=== PATIENT | female | born 1990 | race American Indian/Alaskan Native ===

== ENCOUNTER 2017-07-26 12:02 | Emergency (ER) | payer MEDICAID ==
[2017-07-26 13:56] LABS: Bilirubin,Urine NEG (Negative); Blood,Urine LG (Negative); Ketones,Urine 20 mg/dL (Negative); Leukocyte Esterase,Urine LG (Negative); Mucus,Urine 2+ /HPF; Nitrite,Urine NEG (Negative)
[2017-07-26 13:58] LABS: RBC,Urine > 182.0 /HPF (0.0-6.0); WBC,Urine > 182.0 /HPF (0.0-6.0)
[2017-07-26 14:04] LABS: Anion Gap 15 mmol/L; BUN/Creatinine Ratio 15; Blood Urea Nitrogen 9 mg/dL (7-17); Carbon Dioxide 24 mmol/L (22-30); Chloride 102.3 mmol/L (98-107); Glucose 89 mg/dL (65-100); Potassium 3.6 mmol/L (3.6-5.0); Sodium 138 mmol/L (137-145)
[2017-07-26 14:13] LABS: Basophils % (Auto) 0.8 % (0.0-1.8); Eosinophils % (Auto) 2.1 % (0.0-4.3); Hematocrit 39.9 % (30.3-42.9); Hemoglobin 13.6 gm/dl (10.1-14.3); Mean Corpuscular HGB Conc 34 % (30-34); Mean Corpuscular Hemoglobin 31 pg (28-32); Mean Corpuscular Volume 91 fl (79-97); Platelet Count 253 K/mm3 (140-440); Red Blood Count 4.41 M/mm3 (3.65-5.03); Red Cell Distribution Width 13.6 % (13.2-15.2); White Blood Count 9.5 K/mm3 (4.5-11.0)
--- NOTE | 2017-07-26 15:26 | Emergency Department Report ---
ED Female HPI - General Chief complaint: Vaginal Bleeding Stated complaint: , VAGINAL BLEEDING Time Seen by Provider: 07/26/17 13:08 Source: patient Mode of arrival: Ambulatory Limitations: No Limitations - History of Present Illness Initial comments: This is a 27-year-old female nontoxic, well nourished in appearance, no acute signs of distress presents to the ED complaining of chronic intermittent UTI. Patient stated 3 days ago she developed dysuria and hematuria. They stated this is occurring for the past 2 years and usually is treated with antibiotics the patient does not remember what antibiotics it is. Patient denies any abdominal pain, nausea, vomiting, back pain, fever, chills, numbness, tingling, vaginal discharge, vaginal bleeding. Patient states she is currently 8 weeks and follows up with a [facility]IC[facility] with normal . Patient denies any abdominal pain or vaginal bleeding. Denies any allergies or past mental history. MD Complaint: dysuria -: Gradual, days(s) (3) Radiation: non-radiating Severity: mild Severity scale (0 -10): 5 Quality: burning Consistency: constant Improves with: none Worsens with: urination Are you Now?: Yes Last Menstrual Period: 06/06/17 EDC: 03/13/18 Associated Symptoms: dysuria, other (hematuria.). denies: vaginal discharge, vaginal bleeding, abdominal pain, nausea/vomiting, fever/chills, headaches, loss of appetite, hematuria, rash, seizure, shortness of breath, syncope, weakness - Related Data Previous Rx's Medication Instructions Recorded Last Taken Type Benzonatate [Tessalon Perles] 100 mg PO Q8HR #10 capsule 12/07/14 Unknown Rx Guaifenesin/Codeine Phosphate 5 ml PO BID #10 dose 12/07/14 Unknown Rx [Guaifen-Codeine 100-10 mg/5 ml] Ibuprofen [Motrin 600 MG tab] 600 mg PO Q8H PRN #20 tablet 12/07/14 Unknown Rx Nitrofurantoin [place]/M-Cryst 100 mg PO Q12HR #20 capsule 07/26/17 Unknown Rx [Macrobid CAP] Allergies Allergy/AdvReac Type Severity Reaction Status Date / Time No Known Allergies Allergy Unverified 12/07/14 10:08 ED Review of Systems ROS: Stated complaint: , VAGINAL BLEEDING Other details as noted in HPI Constitutional: denies: chills, fever Eyes: denies: eye pain, eye discharge, vision change ENT: denies: ear pain, throat pain Respiratory: denies: cough, shortness of breath, wheezing Cardiovascular: denies: chest pain, palpitations Endocrine: no symptoms reported Gastrointestinal: denies: abdominal pain, nausea, diarrhea Genitourinary: dysuria, hematuria. denies: urgency, discharge Musculoskeletal: denies: back pain, joint swelling, arthralgia Skin: denies: rash, lesions Neurological: denies: headache, weakness, paresthesias Psychiatric: denies: anxiety, depression Hematological/Lymphatic: denies: easy bleeding, easy bruising ED Past Medical Hx - Past Medical History Previous Medical History?: No - Surgical History Past Surgical History?: No - Social History Smoking Status: Current Every Day Smoker Substance Use Type: None, Alcohol - Medications Home Medications: Home Medications Medication Instructions Recorded Confirmed Last Taken Type Benzonatate [Tessalon Perles] 100 mg PO Q8HR #10 capsule 12/07/14 Unknown Rx Guaifenesin/Codeine Phosphate 5 ml PO BID #10 dose 12/07/14 Unknown Rx [Guaifen-Codeine 100-10 mg/5 ml] Ibuprofen [Motrin 600 MG tab] 600 mg PO Q8H PRN #20 tablet 12/07/14 Unknown Rx Nitrofurantoin [place]/M-Cryst 100 mg PO Q12HR #20 capsule 07/26/17 Unknown Rx [Macrobid CAP] ED Physical Exam - General Limitations: No Limitations General appearance: alert, in no apparent distress - Head Head exam: Present: atraumatic, normocephalic - Eye Eye exam: Present: normal appearance, PERRL, EOMI. Absent: scleral icterus, conjunctival injection, nystagmus, periorbital swelling, periorbital tenderness Pupils: Present: normal accommodation - ENT ENT exam: Present: normal exam, normal orophraynx, mucous membranes moist, TM's normal bilaterally, normal external ear exam - Neck Neck exam: Present: normal inspection, full ROM. Absent: tenderness, meningismus, lymphadenopathy, thyromegaly - Respiratory Respiratory exam: Present: normal lung sounds bilaterally. Absent: respiratory distress, wheezes, rales, rhonchi, stridor, chest wall tenderness, accessory muscle use, decreased breath sounds, prolonged expiratory - Cardiovascular Cardiovascular Exam: Present: regular rate, normal rhythm, normal heart sounds. Absent: bradycardia, tachycardia, irregular rhythm, systolic murmur, diastolic murmur, rubs, gallop - GI/Abdominal GI/Abdominal exam: Present: soft, normal bowel sounds. Absent: distended, tenderness, guarding, rebound, rigid, diminished bowel sounds - Rectal Rectal exam: Present: deferred - Extremities Exam Extremities exam: Present: normal inspection, full ROM, normal capillary refill. Absent: tenderness, pedal edema, joint swelling, calf tenderness - Back Exam Back exam: Present: normal inspection, full ROM. Absent: tenderness, CVA tenderness (R), CVA tenderness (L), muscle spasm, paraspinal tenderness, vertebral tenderness, rash noted - Neurological Exam Neurological exam: Present: alert, oriented X3, CN II-XII intact, normal gait, reflexes normal - Psychiatric Psychiatric exam: Present: normal affect, normal mood - Skin Skin exam: Present: warm, dry, intact, normal color. Absent: rash ED Course Vital Signs 07/26/17 12:06 Temperature 98.4 F Pulse Rate 60 Blood Pressure 132/81 O2 Sat by Pulse 99 Oximetry - Reevaluation(s) Reevaluation #1: 07/26/17 15:26 Patient is speaking in full sentences with no signs of distress noted. - Consultations Consultation #1: 07/26/17 15:26 Dr. Bernal has been consulted about patient history, physical exam, and labs and agrees to d/c with Macrobid and f/u. ED Medical Decision Making - Lab Data Result diagrams: 07/26/17 13:36 07/26/17 13:36 - Medical Decision Making 27-year-old female that presents with UTI. UA indicates elevated WBCs and RBCs. Patient be treated with Macrobid. Transvaginal and abdominal ultrasound has been obtained with negative findings of any abnormalities. Patient notified of report and UA and agrees to plan of care. Patient was instructed to follow-up with a primary care doctor/[facility]IC[facility] in 3-5 days or if symptoms worsen and continue return to emergency room as soon as possible possible. Patient is hemodynamically stable with stable vital signs. Patient states he is feeling better. At time time of discharge, the patient does not seem toxic or ill in appearance. No acute signs of distress noted. Patient agrees to discharge treatment plan of care. No further questions noted by the patient. Critical care attestation.: If time is entered above; I have spent that time in minutes in the direct care of this critically ill patient, excluding procedure time. ED Disposition Clinical Impression: UTI (urinary tract infection) Qualifiers: Urinary tract infection type: site unspecified Hematuria presence: with hematuria Qualified Code(s): N39.0 - Urinary tract infection, site not specified ; R31.9 - Hematuria, unspecified; R31.9 - Hematuria, unspecified Disposition: TO HOME OR SELFCARE Is pt being admited?: No Does the pt Need Aspirin: No Condition: Stable Instructions: Urinary Tract Infection in Women (ED), Nitrofurantoin Combination (By mouth) Additional Instructions: follow-up with a primary care doctor/[facility] LUBRICATOR in 3-5 days or if symptoms worsen and continue return to emergency room as soon as possible Prescriptions: Nitrofurantoin [place]/M-Cryst [Macrobid CAP] 100 mg PO Q12HR #20 capsule Referrals: PRIMARY CAREMD [Primary Care Provider] - 3-5 Days LIDNA GAVIN MD [Staff Physician] - 3-5 Days JESUSITA HART MD [Staff Physician] - 3-5 Days [facility] [Outside] - 3-5 Days [facility] [Outside] - 3-5 Days Forms: Work/School Release Form(ED)
--- NOTE | 2017-07-26 16:19 | Ultrasound Report ---
OB ultrasound: patient with abdominal pain. Endovaginal and transabdominal imaging demonstrates an anteverted uterus measuring 5.1 x 5.6 x 9.5 cm. The myometrium is homogeneous. There is an intrauterine gestational sac containing a yolk sac and a gestation with crown-rump length of 7.8 mm. This is equivalent to gestational age of 6 weeks 5 days. Doppler imaging indicates a heart rate of 122 beats per minute. The left ovary measures 2 cm and the right measures 2.5 cm. Both are echogenically unremarkable. No other adnexal masses and no free fluid. Impressions: Viable veloz intrauterine with no apparent complication.
[2017-07-26 17:00] VITALS: BP 120/69
== END 2017-07-26 16:59 | disposition home or self-care (01) ==
LOC: ED 12:02
DX: O23.31 Infections of other parts of urinary tract in pregnancy, first trimester (principal); N39.0 Urinary tract infection, site not specified; R31.9 Hematuria, unspecified; F17.200 Nicotine dependence, unspecified, uncomplicated; Z3A.08 8 weeks gestation of pregnancy
CPT/HCPCS: 36415; 76801; 76817; 80048; 81001; 84702; 85025; 86850; 86900; 86901

== ENCOUNTER 2020-10-27 10:01 | Emergency (ER) | payer SELFPAY ==
[2020-10-27 11:42] LABS: HCG Qualitative,Urine Negative (Negative)
[2020-10-27 11:45] LABS: Bacteria,Urine 1+ /HPF (Negative); Bilirubin,Urine NEG (Negative); Blood,Urine LG (Negative); Color,Urine Amber (Yellow)
[2020-10-27 11:46] LABS: RBC,Urine > 182.0 /HPF (0.0-6.0)
[2020-10-27] MEDS ORDERED: ONDANSETRON 4 MG/2 ML INJ IV ONE (12:46)
[2020-10-27] MEDS ORDERED: KETOROLAC 30 MG/1 ML INJ IV ONE (12:46)
[2020-10-27] MEDS ORDERED: SODIUM CHLORIDE 0.9% 1000 ML 1,000 ML IV ONE (12:46)
[2020-10-27] MEDS ORDERED: cefTRIAXone/NS 1 GM/50 ML 1 GM/50 ML BAG IV ONE (12:48)
--- NOTE | 2020-10-27 12:49 | Emergency Department Report ---
ED Female HPI - General Chief complaint: Urogenital-Female Stated complaint: UTI Time Seen by Provider: 10/27/20 11:52 Source: patient Mode of arrival: Ambulatory Limitations: No Limitations - History of Present Illness Initial comments: 30-year-old female with a past medical history of recurrent UTIs presents to the ER today complaining of a 1 month history of hematuria and dysuria. Patient states that she has burning towards the end of her urination and also bright red blood was in her urination. This has been constant for the past month. She reports associated lower abdominal pain and lower back pain and this morning she had a mild case of nausea but no vomiting. Patient states that she has not been seen by any primary care doctors or urgent care of the ER doctors in the past month for her symptoms. She states that she has been having similar symptoms off and on for the past 5 years, and typically she will be diagnosed with a UTI and given antibiotics, but her symptoms have been recurrent. She states that she does not have insurance and therefore does not have a primary care doctor and has never seen a urologist. Typically she will go to an urgent care or the ER for treatment. Her last menstrual cycle was 10/16/2019. MD Complaint: dysuria, pelvic pain, other (hematuria) -: month(s) (1) - Related Data Previous Rx's Medication Instructions Recorded Last Taken Type Benzonatate [Tessalon Perles] 100 mg PO Q8HR #10 capsule 12/07/14 Unknown Rx Guaifenesin/Codeine Phosphate 5 ml PO BID #10 dose 12/07/14 Unknown Rx [Guaifen-Codeine 100-10 mg/5 ml] Ibuprofen [Motrin 600 MG tab] 600 mg PO Q8H PRN #20 tablet 12/07/14 Unknown Rx Nitrofurantoin [place]/M-Cryst 100 mg PO Q12HR #20 capsule 07/26/17 Unknown Rx [Macrobid CAP] Ketorolac [Toradol] 10 mg PO Q6H PRN #20 tablet 10/27/20 Unknown Rx Ondansetron [Zofran Odt] 4 mg PO Q8HR PRN #12 tab.rapdis 10/27/20 Unknown Rx cephALEXin [Keflex] 500 mg PO Q6HR #40 capsule 10/27/20 Unknown Rx Allergies Allergy/AdvReac Type Severity Reaction Status Date / Time No Known Allergies Allergy Unverified 12/07/14 10:08 ED Review of Systems ROS: Stated complaint: UTI Other details as noted in HPI Constitutional: denies: chills, fever Respiratory: denies: cough, shortness of breath, wheezing Cardiovascular: denies: chest pain, palpitations Genitourinary: urgency, dysuria, frequency, hematuria. denies: discharge, abnormal menses, dyspareunia Musculoskeletal: back pain Skin: denies: rash, lesions Neurological: denies: headache, weakness, paresthesias Psychiatric: denies: anxiety, depression Hematological/Lymphatic: denies: easy bleeding, easy bruising ED Past Medical Hx - Past Medical History Previous Medical History?: Yes Additional medical history: UTI - Surgical History Past Surgical History?: No - Social History Smoking Status: Light Tobacco Smoker Substance Use Type: Alcohol, Marijuana - Medications Home Medications: Home Medications Medication Instructions Recorded Confirmed Last Taken Type Benzonatate [Tessalon Perles] 100 mg PO Q8HR #10 capsule 12/07/14 Unknown Rx Guaifenesin/Codeine Phosphate 5 ml PO BID #10 dose 12/07/14 Unknown Rx [Guaifen-Codeine 100-10 mg/5 ml] Ibuprofen [Motrin 600 MG tab] 600 mg PO Q8H PRN #20 tablet 12/07/14 Unknown Rx Nitrofurantoin [place]/M-Cryst 100 mg PO Q12HR #20 capsule 07/26/17 Unknown Rx [Macrobid CAP] Ketorolac [Toradol] 10 mg PO Q6H PRN #20 tablet 10/27/20 Unknown Rx Ondansetron [Zofran Odt] 4 mg PO Q8HR PRN #12 tab.rapdis 10/27/20 Unknown Rx cephALEXin [Keflex] 500 mg PO Q6HR #40 capsule 10/27/20 Unknown Rx ED Physical Exam - General Limitations: No Limitations General appearance: alert, in no apparent distress - Head Head exam: Present: atraumatic, normocephalic, normal inspection - Eye Eye exam: Present: normal appearance, PERRL, EOMI Pupils: Present: normal accommodation - Neck Neck exam: Present: full ROM - Respiratory Respiratory exam: Present: normal lung sounds bilaterally - Cardiovascular Cardiovascular Exam: Present: regular rate, normal rhythm, normal heart sounds - GI/Abdominal GI/Abdominal exam: Present: soft, tenderness (Mild suprapubic tenderness without guarding or rebound.). Absent: distended, guarding, rebound - Neurological Exam Neurological exam: Present: alert, oriented X3, CN II-XII intact, normal gait - Psychiatric Psychiatric exam: Present: normal affect, normal mood - Skin Skin exam: Present: intact ED Course Vital Signs 10/27/20 10:27 Temperature 98.2 F Pulse Rate 67 Respiratory 18 Rate Blood Pressure 132/84 [Left] O2 Sat by Pulse 99 Oximetry ED Medical Decision Making - Lab Data Result diagrams: 10/27/20 12:50 10/27/20 12:50 - Radiology Data Radiology results: report reviewed Findings [facility] [address] [place] [address] Cat Scan Report Signed Patient: ANAY MANN MR#: [id number] : 1990 Acct:[id number] Age/Sex: 30 / F ADM Date: 10/27/20 Loc: ED Attending Dr: Ordering Physician: MAYCO DE LA CRUZ Date of Service: 10/27/20 Procedure(s): CT abdomen pelvis w con Accession Number(s): [id number] cc: MAYCO DE LA CRUZ CT ABDOMEN AND PELVIS WITH IV CONTRAST INDICATION: Hematuria x 1 mth/dysuria. COMPARISON: None available. TECHNIQUE: Axial CT images were obtained through the abdomen and pelvis after 100 mL IV contrast. All CT scans at this location are performed using CT dose reduction for ALARA by means of automated exposure control. FINDINGS -- ABDOMEN: Lung Bases: No acute abnormality. Liver: Normal. Gallbladder: Normal. Bile Ducts: Normal. Pancreas: Normal. Spleen: Normal. Adrenals: Normal. Right Kidney and Proximal Ureter: Normal. Left Kidney and Proximal Ureter: Normal. Stomach and Bowel: Normal. Lymph Nodes: No significant adenopathy. Aorta: No significant abnormality. IVC: Normal. Additional Findings: There are several borderline enlarged nodes identified along the right lower quadrant mesentery.. FINDINGS -- PELVIS: Urinary Bladder and Distal Ureters: Please see below comments. Reproductive Organs: There is a intrauterine device that is malpositioned and appears outside of the uterus. This device appears to be at least partially along or within the right upper aspect of the urinary bladder lumen. Appendix: Normal. Bowel: No acute abnormality. Free Fluid: None. Lymph Nodes: No significant adenopathy. Additional Findings: None. Skeletal System: No acute abnormality. IMPRESSION: Malpositioned intrauterine device which appears entirely extrauterine and is within very close proximity to the right upper aspect of the urinary bladder and the right lower pelvic mesentery just lateral to the uterine fundus. I cannot exclude the possibility that a portion of the intrauterine device is located within the urinary bladder given the overall appearance. The urinary bladder is collapsed. No drainable intra-abdominal fluid collections identified at this time. Signer Name: Tito Brantley MD Signed: 10/27/2020 2:48 PM Workstation Name: [id number] Transcribed By: BC Dictated By: Tito Brantley MD Electronically Authenticated By: Tito Brantley MD Signed Date/Time: 10/27/20 1448 DD/ 1434 TD/TT: - Medical Decision Making 1530: Labs reviewed and CBC shows a normal white count as well as normal hemoglobin and platelet count. Chemistries are unremarkable. Urinalysis is concerning for UTI, urine culture is pending. CT abdomen pelvis reviewed and there appears to be an IUD does outside of the uterus, and close to the bladder and there is a question of whether it could be possibly within the bladder as well. Otherwise CT scan showed no other acute abnormality. Patient currently resting comfortably. She is currently on her phone and does not appear to be in any acute distress. She is well-appearing and nontoxic. Appears hydrated. She had mild tenderness to the suprapubic abdomen without rebound or guarding or any abdominal rigidity. She reports improvement of her pain after meds. Discussed the lab results and CT results with the patient. She does admit that she had an IUD placed about 9 years ago by [facility]. She thinks it is the Mirena. Discussed the case with Dr. Singleton who reviewed CT and lab results. He recommends consulting patient's [facility] [facility] group who placed the IUD. Dr. Dr Alfred Arguello is transportation clerk today for the group 1535: Call placed to Dr. Arguello, reviewed history, physical as well as lab and CT findings with him. He agrees patient can be discharge and follow-up outpatient to have her IUD removed but due to the fact that we do not have urology transportation clerk here, he recommend that patient follow-up with a clinic or hospital like either [facility] or [facility] who has both urology and [facility] [facility] on-call services, as she likely will need outpatient surgery to have this removed but will need both urology and [employer] to get it done. He is concerned that if this becomes an emergency, there is no urology on-call. Discussed Dr Hardin recommendations with Dr Singleton Discussed treatment plan, and recommendations per consult with [employer] if patient. She expressed understanding of instructions and agreed with plan. Critical care attestation.: If time is entered above; I have spent that time in minutes in the direct care of this critically ill patient, excluding procedure time. ED Disposition Clinical Impression: UTI (urinary tract infection), IUD mechanical complication Disposition: TO HOME OR SELFCARE Is pt being admited?: No Does the pt Need Aspirin: No Condition: Stable Instructions: Urinary Tract Infection, Adult Additional Instructions: I recommend that you take the antibiotic and the pain medicine prescribed here to you as directed. Follow up with [facility] or [facility] listed on your discharge instructions to follow-up with an [employer]. Return to the ER if your symptoms changes or worsens in any way. Prescriptions: cephALEXin [Keflex] 500 mg PO Q6HR #40 capsule Ketorolac [Toradol] 10 mg PO Q6H PRN #20 tablet PRN Reason: Pain Ondansetron [Zofran Odt] 4 mg PO Q8HR PRN #12 tab.rapdis PRN Reason: Vomiting Referrals: LAUREL BOLANOS MD [Staff Physician] - 3-5 Days [facility] [Other] - 3-5 Days [facility] [place] [Other] - 3-5 Days Time of Disposition: 16:21
[2020-10-27 13:38] LABS: Basophils % (Auto) 0.5 % (0.0-1.8); Eosinophils # (Auto) 0.2 K/mm3 (0.0-0.4); Eosinophils % (Auto) 2.5 % (0.0-4.3); Hematocrit 39.1 % (30.3-42.9); Lymphocytes # (Auto) 2.5 K/mm3 (1.2-5.4); Lymphocytes % (Auto) 25.4 % (13.4-35.0); Mean Corpuscular HGB Conc 33 % (30-34); Mean Corpuscular Volume 92 fl (79-97); Monocytes # (Auto) 0.7 K/mm3 (0.0-0.8); Monocytes % (Auto) 7.4 % (0.0-7.3); Platelet Count 359 K/mm3 (140-440); Red Blood Count 4.25 M/mm3 (3.65-5.03); Red Cell Distribution Width 14.2 % (13.2-15.2)
[2020-10-27 14:11] LABS: Alanine Aminotransferase 16 units/L (7-56); Albumin 4.1 g/dL (3.9-5); BUN/Creatinine Ratio 11; Blood Urea Nitrogen 9 mg/dL (7-17); Calcium 9.6 mg/dL (8.4-10.2); Hemolysis Index 2
--- NOTE | 2020-10-27 14:52 | Cat Scan Report ---
CT ABDOMEN AND PELVIS WITH IV CONTRAST INDICATION: Hematuria x 1 mth/dysuria. COMPARISON: None available. TECHNIQUE: Axial CT images were obtained through the abdomen and pelvis after 100 mL IV contrast. All CT scans a t this location are performed using CT dose reduction for ALARA by means of automated exposure contro l. FINDINGS -- ABDOMEN: Lung Bases: No acute abnormality. Liver: Normal. Gallbladder: Normal. Bile Ducts: Normal. Pancreas: Normal. Spleen: Normal. Adrenals: Normal. Right Kidney and Proximal Ureter: Normal. Left Kidney and Proximal Ureter: Normal. Stomach and Bowel: Normal. Lymph Nodes: No significant adenopathy. Aorta: No significant abnormality. IVC: Normal. Additional Findings: There are several borderline enlarged nodes identified along the right lower ron drant mesentery.. FINDINGS -- PELVIS: Urinary Bladder and Distal Ureters: Please see below comments. Reproductive Organs: There is a intrauterine device that is malpositioned and appears outside of the uterus. This device appears to be at least partially along or within the right upper aspect of the ur inary bladder lumen. Appendix: Normal. Bowel: No acute abnormality. Free Fluid: None. Lymph Nodes: No significant adenopathy. Additional Findings: None. Skeletal System: No acute abnormality. IMPRESSION: Malpositioned intrauterine device which appears entirely extrauterine and is within very close proxim ity to the right upper aspect of the urinary bladder and the right lower pelvic mesentery just latera l to the uterine fundus. I cannot exclude the possibility that a portion of the intrauterine device i s located within the urinary bladder given the overall appearance. The urinary bladder is collapsed. No drainable intra-abdominal fluid collections identified at this time. Signer Name: Tito Brantley MD Signed: 10/27/2020 2:48 PM Workstation Name: [id number]
[2020-10-27 18:01] VITALS: BP 128/72
== END 2020-10-27 18:08 | disposition home or self-care (01) ==
LOC: ED 10:01
DX: N39.0 Urinary tract infection, site not specified (principal); T83.89XA Other specified complication of genitourinary prosthetic devices, implants and grafts, initial encounter; F17.200 Nicotine dependence, unspecified, uncomplicated; F12.10 Cannabis abuse, uncomplicated; Z79.899 Other long term (current) drug therapy
CPT/HCPCS: 36415; 74177; 80053; 81001; 81025; 85025; 87086; 96365; 96375; 99284; J0696; J1885; J2405; J7030; Q9967

== ENCOUNTER 2021-11-15 08:41 | Inpatient (IN) | payer MEDICAID ==
[2021-11-15] MEDS ORDERED: miSOPROStol 25 MCG TAB PO NR (10:31)
--- NOTE | 2021-11-15 10:37 | History and Physical Report ---
History of Present Illness Date of examination: 11/15/21 Date of admission: 11/15/21 08:41 Chief complaint: Presents for a scheduled induction of labor due to GDM A2 (Metformin); and Maternal obesity. History of present illness: Early entry to care, course complicated by IUD in left Fallopian tube, SMA carrier, GDM A2, Recurrent UTIs, Anemia, and Vitamin D Deficiency; Co-managed with [facility]. Past History Past Medical History: no pertinent history Past Surgical History: [employer]/uterine surgery (EAB) [employer] History: chlamydia, trichomonas Family/Genetic History: heart disease (Father, PGM), hypertension (parents, MGM, aunt) - Obstetrical History Expected Date of Delivery: 11/22/21 Actual Gestation: 39 Week(s) 0 Day(s) : 7 Para: 3 Hx # Term Pregnancies: 3 Induced : 3 Number of Living Children: 3 #1 Gender: Male year: 2,[birth year] Birthweight: 2.665 kg Method of Delivery: Vaginal Gestational age at delivery: 41 #2 Infant Gender: Female year: 2,011 Birthweight: 3.09 kg Method of Delivery: Vaginal Gestational age at delivery: 41 #3 Infant Gender: Male year: 2,013 Birthweight: 3.203 kg Method of Delivery: Vaginal Gestational age at delivery: 41 Medications and Allergies Allergies Allergy/AdvReac Type Severity Reaction Status Date / Time No Known Allergies Allergy Verified 11/15/21 08:57 Home Medications Medication Instructions Recorded Confirmed Last Taken Type Benzonatate [Tessalon Perles] 100 mg PO Q8HR #10 capsule 12/07/14 Unknown Rx Guaifenesin/Codeine Phosphate 5 ml PO BID #10 dose 12/07/14 Unknown Rx [Guaifen-Codeine 100-10 mg/5 ml] Ibuprofen [Motrin 600 MG tab] 600 mg PO Q8H PRN #20 tablet 12/07/14 Unknown Rx Nitrofurantoin Pike/M-Cryst 100 mg PO Q12HR #20 capsule 07/26/17 Unknown Rx [Macrobid CAP] Ketorolac [Toradol] 10 mg PO Q6H PRN #20 tablet 10/27/20 Unknown Rx Ondansetron [Zofran Odt] 4 mg PO Q8HR PRN #12 tab.rapdis 10/27/20 Unknown Rx cephALEXin [Keflex] 500 mg PO Q6HR #40 capsule 10/27/20 Unknown Rx Active Meds: Active Medications Butorphanol Tartrate (Butorphanol 2 Mg/1 Ml Inj) 2 mg IV Q2H PRN PRN Reason: Pain , Severe (7-10) Carboprost Tromethamine (Carboprost Tromethamine 250 Mcg/1 Ml Inj) 250 mcg IM ONCE PRN PRN Reason: Uterine Bleeding Ephedrine Sulfate (Ephedrine Sulfate 50 Mg/1 Ml Inj) 10 mg IV Q2M PRN PRN Reason: Hypotension Oxytocin/Sodium Chloride (Pitocin/Ns 30 Unit/500ml) 30 units in 500 mls @ 2 mls/hr IV TITR RICA; Protocol Lactated Ringer's (Lactated Ringers) 1,000 mls @ 125 mls/hr IV DIRECT RICA Oxytocin/Sodium Chloride (Pitocin/Ns 30 Unit/500ml) 30 units in 500 mls @ 40 mls/hr IV TITR RICA; Protocol Lidocaine (Lidocaine (2%) 20 Mg/1 Ml Vial 20 Ml Mdv) 20 ml INFILTRATI ONCE ONE Stop: 11/15/21 10:24 Loperamide HCl (Loperamide 2 Mg Cap) 2 mg PO ONCE PRN PRN Reason: give with Hemabate Methylergonovine Maleate (Methylergonovine Maleate 0.2 Mg/Ml Vial) 0.2 mg IM ONCE PRN PRN Reason: Uterine Bleeding Mineral Oil (Mineral Oil 30 Ml Oral Liqd) 30 ml PO QHS PRN PRN Reason: Constipation Misoprostol (Misoprostol 200 Mcg Tab) 800 mcg MT ONCE PRN PRN Reason: Uterine Bleeding Misoprostol (Misoprostol 25 Mcg Tab) 25 mcg PO ONCE ONE Stop: 11/15/21 10:32 Naloxone HCl (Naloxone 0.4 Mg/1 Ml Inj) 0.1 mg IV Q2MIN PRN PRN Reason: Res Rate </= 8 or 02 SAT < 92% Ondansetron HCl (Ondansetron 4 Mg/2 Ml Inj) 4 mg IV Q8H PRN PRN Reason: Nausea And Vomiting Oxytocin (Oxytocin 10 Unit/1 Ml Inj) 10 unit IM ONCE PRN PRN Reason: Uterine Bleeding Terbutaline Sulfate (Terbutaline 1 Mg/1 Ml Inj) 0.25 mg SUB-Q ONCE PRN PRN Reason: Hyperstimulation/Hypertonicity Review of Systems All systems: negative - Vital Signs Vital signs: Vital Signs Temp Pulse Resp BP Pulse Ox 98.0 F 82 14 126/71 97 11/15/21 09:11 11/15/21 09:11 11/15/21 09:11 11/15/21 09:11 11/15/21 09:11 Temp Pulse Resp BP Pulse Ox 98.0 F 78 14 126/71 100 11/15/21 09:11 11/15/21 10:27 11/15/21 09:11 11/15/21 09:11 11/15/21 10:27 - Physical Exam Breasts: Positive: normal Cardiovascular: Regular rate Lungs: Positive: Clear to auscultation, Normal air movement Abdomen: Positive: normal appearance, soft, normal bowel sounds Genitourinary (Female): Positive: normal external genitalia, normal perenium Vagina: Positive: normal moisture Uterus: Positive: enlarged Anus/Rectum: Positive: normal perianal skin Extremities: Positive: normal - Obstetrical FHR: category 1 Uterine Contraction Monitor Mode: External Cervical Dilatation: 1 Cervical Effacement Percentage: 30 station: -4 Uterine Contraction Pattern: Irregular Uterine Tone Measurement Phase: Resting Uterine Contraction Intensity: Mild Results All other labs normal. Assessment and Plan A: IUP @ 39 Weeks Category I Tracing GDM A2 Maternal Obesity GBS Negative P: Admit to L&D per Routine Orders Accuchecks q 4 hours Cook's Cervical Ripening Balloon placed Cytotec 25mcg PO x 1 dose
[2021-11-15] MEDS ORDERED: ONDANSETRON 4 MG/2 ML INJ IV PRN ×2 (11:00→20:29)
[2021-11-15] MEDS ORDERED: OXYTOCIN 10 UNIT/1 ML INJ IM PRN (11:00)
[2021-11-15] MEDS ORDERED: LOPERAMIDE 2 MG CAP PO PRN (11:00)
[2021-11-15] MEDS ORDERED: TERBUTALINE 1 MG/1 ML INJ SUB-Q PRN (11:00)
[2021-11-15] MEDS ORDERED: METHYLERGONOVINE MALEATE 0.2 MG/ML VIAL IM PRN (11:00)
[2021-11-15] MEDS ORDERED: BUTORPHANOL 2 MG/1 ML INJ IV PRN (11:00)
[2021-11-15] MEDS ORDERED: miSOPROStol 200 MCG TAB PR PRN (11:00)
[2021-11-15] MEDS ORDERED: ePHEDrine SULFATE 50 MG/1 ML INJ IV PRN (11:00)
[2021-11-15] MEDS ORDERED: OXYTOCIN DRIP 30 UNITS/500 ML BAG IV SCH ×2 (11:00)
[2021-11-15] MEDS ORDERED: NALOXONE 0.4 MG/1 ML INJ IV PRN (11:00)
[2021-11-15] MEDS ORDERED: LIDOCAINE (2%) 20 MG/1 ML VIAL 20 ML MDV INFILTRATI NR (11:00)
[2021-11-15] MEDS ORDERED: CARBOPROST TROMETHAMINE 250 MCG/1 ML INJ IM PRN (11:00)
[2021-11-15] MEDS: LACTATED RINGERS 1,000 ML IV SCH ×3 (11:40→20:00)
[2021-11-15] MEDS ORDERED: IBUPROFEN 600 MG TAB PO SCH (13:00)
[2021-11-15] MEDS ORDERED: WITCH HAZEL/ GLYCERIN PAD TP PRN (13:00)
[2021-11-15] MEDS ORDERED: LANOLIN/ZINC/DIMETHICONE (LANSINOH) 7 GM TP PRN (13:00)
[2021-11-15] MEDS ORDERED: HYDROcodone/ACETAMINOPHEN 5-325 MG TAB PO PRN (13:00)
[2021-11-15 13:22] LABS: Hemoglobin 9.6 gm/dl (10.1-14.3); Mean Corpuscular HGB Conc 33 % (30-34); Mean Corpuscular Volume 85 fl (79-97); Platelet Count 405 K/mm3 (140-440); Red Blood Count 3.42 M/mm3 (3.65-5.03); Red Cell Distribution Width 14.5 % (13.2-15.2)
[2021-11-15] MEDS ORDERED: diphenhydrAMINE 25 MG CAP PO PRN (14:00)
--- NOTE | 2021-11-15 14:42 | Progress Note ---
Assessment and Plan A: IUP @ 39 Weeks Category I Tracing with low baseline GDM A2 Maternal Obesity GBS Negative P: AROM Internals x 2 Continue Pitocin Augmentation Continue Accuchecks as ordered Subjective - Subjective Date of service: 11/15/21 Interval history: Early entry to care, course complicated by IUD in left Fallopian tube, SMA carrier, GDM A2, Recurrent UTIs, Anemia, and Vitamin D Deficiency; Co-managed with [facility]. Patient reports: movement normal, contractions Objective - Vital Signs Vital Signs: Vital Signs - 12hr 11/15/21 11/15/21 11/15/21 09:11 09:12 09:17 Temperature 98.0 F Pulse Rate 82 82 84 Respiratory 14 Rate Blood Pressure 126/71 Blood Pressure 126/71 [Right] O2 Sat by Pulse 97 98 99 Oximetry O2 Sat by Pulse Oximetry [ Bilateral] 11/15/21 11/15/21 11/15/21 09:22 09:26 09:27 Temperature Pulse Rate 79 81 Respiratory Rate Blood Pressure Blood Pressure [Right] O2 Sat by Pulse 99 98 Oximetry O2 Sat by Pulse 99 Oximetry [ Bilateral] 11/15/21 11/15/21 11/15/21 09:32 09:37 09:42 Temperature Pulse Rate 79 76 80 Respiratory Rate Blood Pressure Blood Pressure [Right] O2 Sat by Pulse 98 98 99 Oximetry O2 Sat by Pulse Oximetry [ Bilateral] 11/15/21 11/15/21 11/15/21 09:47 09:52 09:57 Temperature Pulse Rate 79 81 83 Respiratory Rate Blood Pressure Blood Pressure [Right] O2 Sat by Pulse 99 99 99 Oximetry O2 Sat by Pulse Oximetry [ Bilateral] 11/15/21 11/15/21 11/15/21 10:02 10:07 10:12 Temperature Pulse Rate 101 H 80 77 Respiratory Rate Blood Pressure Blood Pressure [Right] O2 Sat by Pulse 100 99 99 Oximetry O2 Sat by Pulse Oximetry [ Bilateral] 11/15/21 11/15/21 11/15/21 10:17 10:22 10:27 Temperature Pulse Rate 78 76 78 Respiratory Rate Blood Pressure Blood Pressure [Right] O2 Sat by Pulse 99 100 100 Oximetry O2 Sat by Pulse Oximetry [ Bilateral] 11/15/21 11/15/21 11/15/21 10:32 10:37 10:42 Temperature Pulse Rate 88 78 81 Respiratory Rate Blood Pressure Blood Pressure [Right] O2 Sat by Pulse 99 100 100 Oximetry O2 Sat by Pulse Oximetry [ Bilateral] 11/15/21 11/15/21 11/15/21 10:47 10:52 10:57 Temperature Pulse Rate 77 76 78 Respiratory Rate Blood Pressure Blood Pressure [Right] O2 Sat by Pulse 100 100 100 Oximetry O2 Sat by Pulse Oximetry [ Bilateral] 11/15/21 11/15/21 11/15/21 11:18 11:23 11:28 Temperature Pulse Rate 69 67 78 Respiratory Rate Blood Pressure Blood Pressure [Right] O2 Sat by Pulse 83 L 100 100 Oximetry O2 Sat by Pulse Oximetry [ Bilateral] 11/15/21 11/15/21 11/15/21 11:33 11:38 11:39 Temperature Pulse Rate 72 92 H Respiratory Rate Blood Pressure Blood Pressure [Right] O2 Sat by Pulse 99 99 89 Oximetry O2 Sat by Pulse Oximetry [ Bilateral] 11/15/21 11/15/21 11/15/21 11:40 11:50 11:57 Temperature Pulse Rate 81 Respiratory Rate Blood Pressure 129/78 Blood Pressure [Right] O2 Sat by Pulse 94 84 Oximetry O2 Sat by Pulse Oximetry [ Bilateral] 11/15/21 11/15/21 11/15/21 12:06 12:07 12:11 Temperature Pulse Rate 74 59 L 99 H Respiratory Rate Blood Pressure Blood Pressure [Right] O2 Sat by Pulse 0 L 3 L 0 L Oximetry O2 Sat by Pulse Oximetry [ Bilateral] 11/15/21 11/15/21 11/15/21 12:16 12:21 12:26 Temperature Pulse Rate 150 H 79 26 L Respiratory Rate Blood Pressure Blood Pressure [Right] O2 Sat by Pulse 0 L 0 L 0 L Oximetry O2 Sat by Pulse Oximetry [ Bilateral] 11/15/21 11/15/21 11/15/21 12:32 12:37 12:42 Temperature Pulse Rate 66 65 Respiratory Rate Blood Pressure Blood Pressure [Right] O2 Sat by Pulse 0 L 0 L 84 Oximetry O2 Sat by Pulse Oximetry [ Bilateral] 11/15/21 11/15/21 11/15/21 12:43 12:47 12:50 Temperature 97.8 F Pulse Rate 94 H 136 H Respiratory Rate Blood Pressure 123/72 Blood Pressure [Right] O2 Sat by Pulse 40 L 94 Oximetry O2 Sat by Pulse Oximetry [ Bilateral] 11/15/21 11/15/21 13:42 14:21 Temperature Pulse Rate 73 79 Respiratory Rate Blood Pressure 117/69 Blood Pressure [Right] O2 Sat by Pulse 100 Oximetry O2 Sat by Pulse Oximetry [ Bilateral] - Exam Breasts: normal Cardiovascular: Regular rate Lungs: Normal air movement Abdomen: Present: normal appearance, soft Uterus: Present: normal, firm, fundal height above umbilicus FHR: category 1 (Low Baseline) Uterine Contraction Monitor Mode: Internal Cervical Dilatation: 6 (AROM @ 1433; large amount of clear fluid) Cervical Effacement Percentage: 70 station: -2 Uterine Contraction Pattern: Regular Uterine Tone Measurement Phase: Resting Uterine Contraction Intensity: Mild Extremities: normal - Labs Labs: Abnormal Labs 11/15/21 10:20 WBC 11.8 H RBC 3.42 L Hgb 9.6 L Hct 29.0 L Laboratory Results - last 24 hr 11/15/21 11/15/21 11/15/21 10:20 10:20 10:34 WBC 11.8 H RBC 3.42 L Hgb 9.6 L Hct 29.0 L MCV 85 MCH 28 MCHC 33 RDW 14.5 Plt Count 405 POC Glucose 72 SARS-CoV-2 (PCR) Blood Type O POSITIVE Antibody Screen Negative 11/15/21 11:23 WBC RBC Hgb Hct MCV MCH MCHC RDW Plt Count POC Glucose SARS-CoV-2 (PCR) Negative Blood Type Antibody Screen
--- NOTE | 2021-11-15 18:57 | Progress Note ---
Assessment and Plan A: IUP @ 39 Weeks Category I Tracing GDM A2 Maternal Obesity GBS Negative P: Continue Pitocin Augmentation Continue Accuchecks as ordered Prepare for Epidural Anesthesia Subjective - Subjective Date of service: 11/15/21 Interval history: Early entry to care, course complicated by IUD in left Fallopian tube, SMA carrier, GDM A2, Recurrent UTIs, Anemia, and Vitamin D Deficiency; Co-managed with [facility]. Patient reports: movement normal, contractions, other (Requesting epidural anesthesia) Objective - Vital Signs Vital Signs: Vital Signs - 12hr 11/15/21 11/15/21 11/15/21 09:11 09:12 09:17 Temperature 98.0 F Pulse Rate 82 82 84 Respiratory 14 Rate Blood Pressure 126/71 Blood Pressure 126/71 [Right] O2 Sat by Pulse 97 98 99 Oximetry O2 Sat by Pulse Oximetry [ Bilateral] 11/15/21 11/15/21 11/15/21 09:22 09:26 09:27 Temperature Pulse Rate 79 81 Respiratory Rate Blood Pressure Blood Pressure [Right] O2 Sat by Pulse 99 98 Oximetry O2 Sat by Pulse 99 Oximetry [ Bilateral] 11/15/21 11/15/21 11/15/21 09:32 09:37 09:42 Temperature Pulse Rate 79 76 80 Respiratory Rate Blood Pressure Blood Pressure [Right] O2 Sat by Pulse 98 98 99 Oximetry O2 Sat by Pulse Oximetry [ Bilateral] 11/15/21 11/15/21 11/15/21 09:47 09:52 09:57 Temperature Pulse Rate 79 81 83 Respiratory Rate Blood Pressure Blood Pressure [Right] O2 Sat by Pulse 99 99 99 Oximetry O2 Sat by Pulse Oximetry [ Bilateral] 11/15/21 11/15/21 11/15/21 10:02 10:07 10:12 Temperature Pulse Rate 101 H 80 77 Respiratory Rate Blood Pressure Blood Pressure [Right] O2 Sat by Pulse 100 99 99 Oximetry O2 Sat by Pulse Oximetry [ Bilateral] 11/15/21 11/15/21 11/15/21 10:17 10:22 10:27 Temperature Pulse Rate 78 76 78 Respiratory Rate Blood Pressure Blood Pressure [Right] O2 Sat by Pulse 99 100 100 Oximetry O2 Sat by Pulse Oximetry [ Bilateral] 11/15/21 11/15/21 11/15/21 10:32 10:37 10:42 Temperature Pulse Rate 88 78 81 Respiratory Rate Blood Pressure Blood Pressure [Right] O2 Sat by Pulse 99 100 100 Oximetry O2 Sat by Pulse Oximetry [ Bilateral] 11/15/21 11/15/21 11/15/21 10:47 10:52 10:57 Temperature Pulse Rate 77 76 78 Respiratory Rate Blood Pressure Blood Pressure [Right] O2 Sat by Pulse 100 100 100 Oximetry O2 Sat by Pulse Oximetry [ Bilateral] 11/15/21 11/15/21 11/15/21 11:18 11:23 11:28 Temperature Pulse Rate 69 67 78 Respiratory Rate Blood Pressure Blood Pressure [Right] O2 Sat by Pulse 83 L 100 100 Oximetry O2 Sat by Pulse Oximetry [ Bilateral] 11/15/21 11/15/21 11/15/21 11:33 11:38 11:39 Temperature Pulse Rate 72 92 H Respiratory Rate Blood Pressure Blood Pressure [Right] O2 Sat by Pulse 99 99 89 Oximetry O2 Sat by Pulse Oximetry [ Bilateral] 11/15/21 11/15/21 11/15/21 11:40 11:50 11:57 Temperature Pulse Rate 81 Respiratory Rate Blood Pressure 129/78 Blood Pressure [Right] O2 Sat by Pulse 94 84 Oximetry O2 Sat by Pulse Oximetry [ Bilateral] 11/15/21 11/15/21 11/15/21 12:06 12:07 12:11 Temperature Pulse Rate 74 59 L 99 H Respiratory Rate Blood Pressure Blood Pressure [Right] O2 Sat by Pulse 0 L 3 L 0 L Oximetry O2 Sat by Pulse Oximetry [ Bilateral] 11/15/21 11/15/21 11/15/21 12:16 12:21 12:26 Temperature Pulse Rate 150 H 79 26 L Respiratory Rate Blood Pressure Blood Pressure [Right] O2 Sat by Pulse 0 L 0 L 0 L Oximetry O2 Sat by Pulse Oximetry [ Bilateral] 11/15/21 11/15/21 11/15/21 12:32 12:37 12:42 Temperature Pulse Rate 66 65 Respiratory Rate Blood Pressure Blood Pressure [Right] O2 Sat by Pulse 0 L 0 L 84 Oximetry O2 Sat by Pulse Oximetry [ Bilateral] 11/15/21 11/15/21 11/15/21 12:43 12:47 12:50 Temperature 97.8 F Pulse Rate 94 H 136 H Respiratory Rate Blood Pressure 123/72 Blood Pressure [Right] O2 Sat by Pulse 40 L 94 Oximetry O2 Sat by Pulse Oximetry [ Bilateral] 11/15/21 11/15/21 11/15/21 13:42 14:21 14:38 Temperature Pulse Rate 73 79 77 Respiratory Rate Blood Pressure 117/69 Blood Pressure [Right] O2 Sat by Pulse 100 100 Oximetry O2 Sat by Pulse Oximetry [ Bilateral] 11/15/21 11/15/21 11/15/21 14:43 14:48 14:53 Temperature Pulse Rate 72 75 78 Respiratory Rate Blood Pressure Blood Pressure [Right] O2 Sat by Pulse 100 100 100 Oximetry O2 Sat by Pulse Oximetry [ Bilateral] 11/15/21 11/15/21 11/15/21 14:58 15:03 15:08 Temperature Pulse Rate 83 74 68 Respiratory Rate Blood Pressure Blood Pressure [Right] O2 Sat by Pulse 100 100 100 Oximetry O2 Sat by Pulse Oximetry [ Bilateral] 11/15/21 11/15/21 11/15/21 15:13 15:18 15:23 Temperature Pulse Rate 73 82 77 Respiratory Rate Blood Pressure Blood Pressure [Right] O2 Sat by Pulse 100 100 100 Oximetry O2 Sat by Pulse Oximetry [ Bilateral] 11/15/21 11/15/21 11/15/21 15:28 15:33 15:38 Temperature Pulse Rate 73 70 77 Respiratory Rate Blood Pressure Blood Pressure [Right] O2 Sat by Pulse 99 100 100 Oximetry O2 Sat by Pulse Oximetry [ Bilateral] 11/15/21 11/15/21 11/15/21 15:43 15:48 15:53 Temperature Pulse Rate 78 84 76 Respiratory Rate Blood Pressure Blood Pressure [Right] O2 Sat by Pulse 100 100 100 Oximetry O2 Sat by Pulse Oximetry [ Bilateral] 11/15/21 11/15/21 11/15/21 15:58 16:03 16:04 Temperature Pulse Rate 81 71 70 Respiratory Rate Blood Pressure 114/57 Blood Pressure [Right] O2 Sat by Pulse 100 100 Oximetry O2 Sat by Pulse Oximetry [ Bilateral] 11/15/21 11/15/21 11/15/21 16:08 16:13 16:18 Temperature Pulse Rate 66 71 72 Respiratory Rate Blood Pressure Blood Pressure [Right] O2 Sat by Pulse 100 100 100 Oximetry O2 Sat by Pulse Oximetry [ Bilateral] 11/15/21 11/15/21 11/15/21 16:23 16:28 16:33 Temperature Pulse Rate 86 71 73 Respiratory Rate Blood Pressure Blood Pressure [Right] O2 Sat by Pulse 100 100 100 Oximetry O2 Sat by Pulse Oximetry [ Bilateral] 11/15/21 11/15/21 11/15/21 16:38 16:43 16:48 Temperature Pulse Rate 82 68 75 Respiratory Rate Blood Pressure Blood Pressure [Right] O2 Sat by Pulse 100 100 100 Oximetry O2 Sat by Pulse Oximetry [ Bilateral] 11/15/21 11/15/21 11/15/21 16:53 16:58 17:03 Temperature Pulse Rate 68 71 66 Respiratory Rate Blood Pressure 130/72 Blood Pressure [Right] O2 Sat by Pulse 100 100 100 Oximetry O2 Sat by Pulse Oximetry [ Bilateral] 11/15/21 11/15/21 11/15/21 17:08 17:13 17:18 Temperature Pulse Rate 75 70 79 Respiratory Rate Blood Pressure Blood Pressure [Right] O2 Sat by Pulse 100 100 100 Oximetry O2 Sat by Pulse Oximetry [ Bilateral] 11/15/21 11/15/21 11/15/21 17:23 17:24 17:28 Temperature Pulse Rate 98 H 89 72 Respiratory Rate Blood Pressure Blood Pressure [Right] O2 Sat by Pulse 98 94 100 Oximetry O2 Sat by Pulse Oximetry [ Bilateral] 11/15/21 11/15/21 11/15/21 17:33 17:38 17:43 Temperature Pulse Rate 66 76 70 Respiratory Rate Blood Pressure Blood Pressure [Right] O2 Sat by Pulse 100 100 100 Oximetry O2 Sat by Pulse Oximetry [ Bilateral] 11/15/21 11/15/21 11/15/21 17:48 17:53 17:58 Temperature Pulse Rate 70 68 83 Respiratory Rate Blood Pressure Blood Pressure [Right] O2 Sat by Pulse 100 100 100 Oximetry O2 Sat by Pulse Oximetry [ Bilateral] 11/15/21 11/15/21 11/15/21 18:14 18:19 18:24 Temperature Pulse Rate 94 H 89 86 Respiratory Rate Blood Pressure Blood Pressure [Right] O2 Sat by Pulse 97 100 100 Oximetry O2 Sat by Pulse Oximetry [ Bilateral] 11/15/21 11/15/21 11/15/21 18:29 18:34 18:39 Temperature Pulse Rate 97 H 90 84 Respiratory Rate Blood Pressure Blood Pressure [Right] O2 Sat by Pulse 100 97 100 Oximetry O2 Sat by Pulse Oximetry [ Bilateral] 11/15/21 11/15/21 18:44 18:49 Temperature Pulse Rate 73 73 Respiratory Rate Blood Pressure Blood Pressure [Right] O2 Sat by Pulse 100 100 Oximetry O2 Sat by Pulse Oximetry [ Bilateral] - Exam Breasts: normal Cardiovascular: Regular rate Lungs: Normal air movement Abdomen: Present: normal appearance, soft Uterus: Present: normal, firm, fundal height above umbilicus FHR: category 1 Uterine Contraction Monitor Mode: Internal Cervical Dilatation: 6 (leaking a moderate amount of clear fluid) Cervical Effacement Percentage: 70 station: -2 Uterine Contraction Pattern: Irregular Uterine Tone Measurement Phase: Resting Uterine Contraction Intensity: Moderate Extremities: normal - Labs Labs: Abnormal Labs 11/15/21 10:20 WBC 11.8 H RBC 3.42 L Hgb 9.6 L Hct 29.0 L Laboratory Results - last 24 hr 11/15/21 11/15/21 11/15/21 10:20 10:20 10:34 WBC 11.8 H RBC 3.42 L Hgb 9.6 L Hct 29.0 L MCV 85 MCH 28 MCHC 33 RDW 14.5 Plt Count 405 POC Glucose 72 SARS-CoV-2 (PCR) Blood Type O POSITIVE Antibody Screen Negative 11/15/21 11/15/21 11/15/21 11:23 14:42 18:20 WBC RBC Hgb Hct MCV MCH MCHC RDW Plt Count POC Glucose 74 87 SARS-CoV-2 (PCR) Negative Blood Type Antibody Screen
[2021-11-15] MEDS ORDERED: NalbUPHINE 10 MG/1 ML INJ IV PRN (20:29)
[2021-11-15] MEDS ORDERED: LACTATED RINGERS 250 ML IV SOLN IV ONE (20:29)
[2021-11-15] MEDS ORDERED: NALOXONE 2 MG/2 ML INJ IV PRN (20:29)
[2021-11-15] MEDS ORDERED: diphenhydrAMINE 50 MG/ML VIAL IV PRN (20:29)
[2021-11-15] MEDS ORDERED: fentaNYL-BUPIV 2 MCG/ML-0.125% 200 MCG/100 ML BAG EPIDURAL SCH (21:00)
--- NOTE | 2021-11-15 21:24 | Anesthesia Consultation ---
Anesthesia Consult and Med Hx Date of service: 11/15/21 - Airway Anesthetic Teeth Evaluation: Good ROM Head & Neck: Adequate Mental/Hyoid Distance: Adequate Mallampati Class: Class III Intubation Access Assessment: Possibly Difficult - Pulmonary Exam CTA: Yes - Cardiac Exam Cardiac Exam: RRR - Pre-Operative Health Status ASA Pre-Surgery Classification: ASA2 Proposed Anesthetic Plan: Epidural - Pulmonary Hx Smoking: No Hx Asthma: No COPD: No Hx Pneumonia: No Hx Sleep Apnea: No - Cardiovascular System Hx Hypertension: No Hx Heart Attack/AMI: No Hx Angina: No - Central Nervous System Hx Seizures: No Hx Psychiatric Problems: No - Gastrointestinal Hx Gastroesophageal Reflux Disease: No - Endocrine Hx Renal Disease: No Hx End Stage Renal Disease: No Hx Liver Disease: No Hx Insulin Dependent Diabetes: No Hx Non-Insulin Dependent Diabetes: No Hx Hypothyroidism: No Hx Hyperthyroidism: No - Hematic Hx Anemia: No Hx Sickle Cell Disease: No - Other Systems Hx Alcohol Use: No Hx Obesity: Yes
--- NOTE | 2021-11-15 21:25 | Progress Note ---
Labor Epidural - Labor Epidural Start Time: 21:08 Stop Time: 21:20 Performed by:: REID DOWELL Procedure: Patient is requesting epidural for labor and pain. H&P, labs were reviewed. Patient IDed, H&P reviewed, all questions and concerns were answered, and consent was signed. Timeout was performed at bedside. Patient in sitting position. Sterile prep and drape was performed. 3ml of 1% lidocaine skin wheal at L[3]- L [4]. 17-gauge Tuohy epidural needle was advanced to loss of resistance with air technique 7cm. Negative CSF negative blood. Epidural catheter advanced to [12] centimeters. [negative] Aspiration [negative] test dose. Sterile dressing applied. Patient tolerated procedure.
[2021-11-15] MEDS ORDERED: MINERAL OIL 30 ML ORAL LIQD PO PRN (22:00)
[2021-11-15] MEDS ORDERED: SODIUM CHLORIDE 0.9% 1000 ML 1,000 ML ONE (22:37)
[2021-11-15] MEDS ORDERED: SODIUM CHLORIDE 0.9% 1000 ML 1,000 ML VG SCH ×2 (22:45)
[2021-11-15] MEDS: ePHEDrine SULFATE 50 MG/1 ML INJ IV PRN ×2 (22:52→23:35)
[2021-11-16 01:54] LABS: Hematocrit 28.5 % (30.3-42.9); Hemoglobin 9.2 gm/dl (10.1-14.3)
--- NOTE | 2021-11-16 02:52 | Ultrasound Report ---
ULTRASOUND OBSTETRIC LIMITED INDICATION / CLINICAL INFORMATION: EFW, HECTOR. Clinical Gestational Age (GA) in weeks, days: 39 weeks 0 days TECHNIQUE: Transabdominal. COMPARISON: None available. FINDINGS: NUMBER: Single PRESENTATION: cephalic AMNIOTIC FLUID VOLUME: normal AMNIOTIC FLUID INDEX (HECTOR) in cm (if measured): 9.0 MEASUREMENTS: - Biparietal Diameter = 8.8 cm = 35 weeks, 3 days - Head Circumference = 30.6 cm = 34 weeks, 1 days - Abdominal Circumference = 27.0 cm = 31 weeks, 1 days - Femur Length = 7.5 cm = 34 weeks, 2 days - Estimated Weight (in grams, if calculated): 2323 g - Heart Rate (beats per minute): 123 ADDITIONAL FINDINGS: None. PERCENTILE ESTIMATED WEIGHT (if calculated): AVERAGE ULTRASOUND AGE (AUA) in weeks, days = 34 weeks 5 days IMPRESSION: 1. Single intrauterine with AUA of 34 weeks, 5 days 2. No significant sonographic abnormality. Signer Name: Maria Luz Holloway MD Signed: 11/16/2021 2:47 AM Workstation Name: [id number]
--- NOTE | 2021-11-16 03:42 | Event Note ---
Date: 11/16/21 CC: IOL secondary to GDMA2 HPI: 31 y/o at 39 weeks presents undergoing IOL secondary to GDMA2. No VB. Good FM. S/P cervical ripening and AROM. Now on Pitocin. IUPC and FSE in place. Accuchecks are q 1 hour and between 79-99. [address]. O: EFM= category 2 TOCO= q 6 min SVE= 8 cm LABS: HgBA1c= 5.5 RAD: OB US Limited= EFW 2323 g (<1st %-ile) IMP: - 39 weeks - GDMA2 - IUGR - Obesity - SMA Carrier - IOL PLAN: - Continue IOL. - Amnioinfusion going though IUPC.
[2021-11-16 03:46] LABS: Basophils % (Auto) 0.2 % (0.0-1.8); Eosinophils % (Auto) 0.3 % (0.0-4.3); Hematocrit 30.5 % (30.3-42.9); Hemoglobin 9.9 gm/dl (10.1-14.3); Lymphocytes # (Auto) 1.4 K/mm3 (1.2-5.4); Mean Corpuscular HGB Conc 33 % (30-34); Mean Corpuscular Volume 85 fl (79-97); Monocytes # (Auto) 1.7 K/mm3 (0.0-0.8); Monocytes % (Auto) 10.6 % (0.0-7.3); Platelet Count 386 K/mm3 (140-440); Red Blood Count 3.58 M/mm3 (3.65-5.03); Red Cell Distribution Width 14.4 % (13.2-15.2)
[2021-11-16] MEDS ORDERED: miSOPROStol 25 MCG TAB PO SCH (04:00)
[2021-11-16] MEDS: LACTATED RINGERS 1,000 ML IV SCH (04:31)
[2021-11-16] MEDS ORDERED: AMPICILLIN/SULBACTA 3GM/100ML 3 GM/100 ML BAG IV SCH (05:00)
--- NOTE | 2021-11-16 08:16 | Progress Note ---
Subjective - Subjective Date of service: 11/16/21 Interval history: 9cm/80/-3 FHT Cat 2, +ve early variables with moderate variability [place]: irregular Plan for CFM oxytocin @1mu/min expect KIM Lester MD Patient reports: movement normal, contractions, other (Requesting epidural anesthesia) Objective - Vital Signs Vital Signs: Vital Signs - 12hr 11/15/21 11/15/21 11/15/21 20:23 20:28 20:33 Temperature Pulse Rate 84 73 69 Blood Pressure O2 Sat by Pulse 100 100 100 Oximetry 11/15/21 11/15/21 11/15/21 20:38 20:43 20:48 Temperature Pulse Rate 71 73 71 Blood Pressure O2 Sat by Pulse 100 100 100 Oximetry 11/15/21 11/15/21 11/15/21 20:53 20:58 21:03 Temperature Pulse Rate 72 93 H 79 Blood Pressure 145/76 O2 Sat by Pulse 99 99 99 Oximetry 11/15/21 11/15/21 11/15/21 21:08 21:13 21:18 Temperature Pulse Rate 81 85 83 Blood Pressure 128/63 O2 Sat by Pulse 99 99 99 Oximetry 11/15/21 11/15/21 11/15/21 21:20 21:23 21:24 Temperature Pulse Rate 88 78 85 Blood Pressure 135/65 124/58 O2 Sat by Pulse 0 L Oximetry 11/15/21 11/15/21 11/15/21 21:26 21:28 21:30 Temperature Pulse Rate 85 96 H 86 Blood Pressure 129/58 123/65 O2 Sat by Pulse 99 Oximetry 11/15/21 11/15/21 11/15/21 21:32 21:33 21:35 Temperature Pulse Rate 73 83 71 Blood Pressure 111/57 116/58 O2 Sat by Pulse 99 Oximetry 11/15/21 11/15/21 11/15/21 21:38 21:39 21:41 Temperature 100.3 F H Pulse Rate 68 66 Blood Pressure 114/59 117/56 O2 Sat by Pulse 100 Oximetry 11/15/21 11/15/21 11/15/21 21:43 21:44 21:47 Temperature Pulse Rate 65 64 67 Blood Pressure 117/56 113/55 O2 Sat by Pulse 99 Oximetry 01/31/22 01/31/22 01/31/22 21:48 21:50 21:53 Temperature Pulse Rate 69 67 65 Blood Pressure 119/57 118/58 O2 Sat by Pulse 99 98 Oximetry 11/15/21 11/15/21 11/15/21 21:56 21:58 21:59 Temperature Pulse Rate 61 66 68 Blood Pressure 122/60 119/58 O2 Sat by Pulse 98 Oximetry 11/15/21 11/15/21 11/15/21 22:02 22:03 22:06 Temperature Pulse Rate 66 66 76 Blood Pressure 120/58 118/68 O2 Sat by Pulse 99 Oximetry 11/15/21 11/15/21 11/15/21 22:08 22:13 22:18 Temperature Pulse Rate 73 65 65 Blood Pressure 119/69 O2 Sat by Pulse 100 99 99 Oximetry 11/15/21 11/15/21 11/15/21 22:23 22:28 22:33 Temperature Pulse Rate 71 71 80 Blood Pressure 117/60 O2 Sat by Pulse 99 99 99 Oximetry 11/15/21 11/15/21 11/15/21 22:38 22:42 22:43 Temperature Pulse Rate 76 58 L 76 Blood Pressure 119/56 O2 Sat by Pulse 100 0 L 100 Oximetry 11/15/21 11/15/21 11/15/21 22:48 22:52 22:53 Temperature Pulse Rate 79 80 69 Blood Pressure 87/53 81/45 O2 Sat by Pulse 100 99 Oximetry 11/15/21 11/15/21 11/15/21 22:58 23:00 23:03 Temperature Pulse Rate 67 67 68 Blood Pressure 94/50 O2 Sat by Pulse 100 100 Oximetry 11/15/21 11/15/21 11/15/21 23:06 23:08 23:13 Temperature Pulse Rate 64 80 69 Blood Pressure 95/49 O2 Sat by Pulse 99 98 Oximetry 11/15/21 11/15/21 11/15/21 23:18 23:21 23:23 Temperature Pulse Rate 69 63 72 Blood Pressure 96/49 O2 Sat by Pulse 100 100 Oximetry 11/15/21 11/15/21 11/15/21 23:28 23:33 23:36 Temperature Pulse Rate 68 67 67 Blood Pressure 135/65 O2 Sat by Pulse 99 99 Oximetry 11/15/21 11/15/21 11/15/21 23:38 23:43 23:48 Temperature Pulse Rate 68 70 69 Blood Pressure O2 Sat by Pulse 99 99 99 Oximetry 11/15/21 11/15/21 11/15/21 23:51 23:53 23:58 Temperature Pulse Rate 62 76 66 Blood Pressure 126/59 O2 Sat by Pulse 98 99 Oximetry 11/16/21 11/16/21 11/16/21 00:00 00:03 00:06 Temperature 98.8 F Pulse Rate 79 75 Blood Pressure 136/76 O2 Sat by Pulse 99 Oximetry 11/16/21 11/16/21 11/16/21 00:08 00:13 00:18 Temperature Pulse Rate 75 71 72 Blood Pressure O2 Sat by Pulse 100 99 99 Oximetry 11/16/21 11/16/21 11/16/21 00:22 00:23 00:28 Temperature Pulse Rate 72 78 75 Blood Pressure 131/75 O2 Sat by Pulse 99 98 Oximetry 11/16/21 11/16/21 11/16/21 00:33 00:37 00:38 Temperature Pulse Rate 91 H 80 82 Blood Pressure 137/75 O2 Sat by Pulse 98 100 Oximetry 11/16/21 11/16/21 11/16/21 00:43 00:48 00:53 Temperature Pulse Rate 74 76 86 Blood Pressure O2 Sat by Pulse 99 98 98 Oximetry 11/16/21 11/16/21 11/16/21 00:58 01:03 01:08 Temperature Pulse Rate 72 75 91 H Blood Pressure 129/80 O2 Sat by Pulse 98 98 97 Oximetry 11/16/21 11/16/21 11/16/21 01:13 01:18 01:23 Temperature Pulse Rate 69 87 89 Blood Pressure O2 Sat by Pulse 99 98 99 Oximetry 11/16/21 11/16/21 11/16/21 01:28 01:33 01:38 Temperature Pulse Rate 77 94 H 95 H Blood Pressure O2 Sat by Pulse 99 99 100 Oximetry 11/16/21 11/16/21 11/16/21 01:39 01:43 01:48 Temperature Pulse Rate 90 81 68 Blood Pressure 102/57 O2 Sat by Pulse 99 99 Oximetry 11/16/21 11/16/21 11/16/21 01:53 01:58 02:03 Temperature Pulse Rate 91 H 71 73 Blood Pressure O2 Sat by Pulse 99 100 99 Oximetry 11/16/21 11/16/21 11/16/21 02:08 02:09 02:13 Temperature Pulse Rate 74 71 79 Blood Pressure 107/57 O2 Sat by Pulse 98 99 Oximetry 11/16/21 11/16/21 11/16/21 02:18 02:23 02:28 Temperature Pulse Rate 85 79 82 Blood Pressure O2 Sat by Pulse 99 99 99 Oximetry 11/16/21 11/16/21 11/16/21 02:33 02:38 02:43 Temperature Pulse Rate 89 80 93 H Blood Pressure 97/51 O2 Sat by Pulse 99 99 100 Oximetry 11/16/21 11/16/21 11/16/21 02:48 02:53 02:58 Temperature Pulse Rate 85 77 88 Blood Pressure O2 Sat by Pulse 98 98 98 Oximetry 11/16/21 11/16/21 11/16/21 03:03 03:08 03:13 Temperature Pulse Rate 92 H 83 78 Blood Pressure 104/58 O2 Sat by Pulse 98 97 100 Oximetry 11/16/21 11/16/21 11/16/21 03:18 03:23 03:28 Temperature Pulse Rate 71 96 H 78 Blood Pressure O2 Sat by Pulse 100 100 100 Oximetry 11/16/21 11/16/21 11/16/21 03:33 03:38 03:39 Temperature Pulse Rate 89 84 88 Blood Pressure 120/59 O2 Sat by Pulse 100 100 Oximetry 11/16/21 11/16/21 11/16/21 03:41 03:43 03:48 Temperature 101.7 F H Pulse Rate 86 88 Blood Pressure O2 Sat by Pulse 100 100 Oximetry 11/16/21 11/16/21 11/16/21 03:53 03:58 04:03 Temperature Pulse Rate 75 75 94 H Blood Pressure O2 Sat by Pulse 100 100 100 Oximetry 11/16/21 11/16/21 11/16/21 04:08 04:13 04:18 Temperature Pulse Rate 76 81 104 H Blood Pressure 114/57 O2 Sat by Pulse 100 100 100 Oximetry 11/16/21 11/16/21 11/16/21 04:23 04:28 04:33 Temperature Pulse Rate 79 76 90 Blood Pressure O2 Sat by Pulse 100 100 100 Oximetry 11/16/21 11/16/21 11/16/21 04:38 04:39 04:43 Temperature Pulse Rate 90 84 81 Blood Pressure 112/67 O2 Sat by Pulse 100 100 Oximetry 11/16/21 11/16/21 11/16/21 04:48 04:53 04:58 Temperature Pulse Rate 74 93 H 96 H Blood Pressure O2 Sat by Pulse 100 100 98 Oximetry 11/16/21 11/16/21 11/16/21 05:03 05:08 05:09 Temperature Pulse Rate 73 73 74 Blood Pressure 114/57 O2 Sat by Pulse 100 99 93 Oximetry 11/16/21 11/16/21 11/16/21 05:13 05:18 05:23 Temperature Pulse Rate 74 74 97 H Blood Pressure O2 Sat by Pulse 100 99 96 Oximetry 11/16/21 11/16/21 11/16/21 05:28 05:33 05:38 Temperature Pulse Rate 72 86 98 H Blood Pressure O2 Sat by Pulse 100 98 100 Oximetry 11/16/21 11/16/21 11/16/21 05:39 05:43 06:08 Temperature Pulse Rate 93 H 91 H 85 Blood Pressure 124/64 130/67 O2 Sat by Pulse 99 Oximetry 11/16/21 11/16/21 11/16/21 06:39 07:00 07:05 Temperature Pulse Rate 83 67 66 Blood Pressure 122/82 O2 Sat by Pulse 100 100 Oximetry 11/16/21 11/16/21 11/16/21 07:08 07:10 07:15 Temperature Pulse Rate 61 69 66 Blood Pressure 113/59 O2 Sat by Pulse 100 100 Oximetry 11/16/21 11/16/21 11/16/21 07:20 07:25 07:30 Temperature Pulse Rate 71 69 63 Blood Pressure O2 Sat by Pulse 100 100 100 Oximetry 11/16/21 11/16/21 11/16/21 07:35 07:39 07:40 Temperature Pulse Rate 66 65 68 Blood Pressure 108/58 O2 Sat by Pulse 100 100 Oximetry 11/16/21 11/16/21 11/16/21 07:45 07:50 07:55 Temperature Pulse Rate 64 67 83 Blood Pressure O2 Sat by Pulse 100 100 100 Oximetry 11/16/21 11/16/21 11/16/21 08:00 08:05 08:08 Temperature Pulse Rate 68 73 67 Blood Pressure 108/68 O2 Sat by Pulse 100 100 94 Oximetry 11/16/21 08:10 Temperature Pulse Rate 77 Blood Pressure O2 Sat by Pulse 100 Oximetry - Labs Labs: Abnormal Labs 11/15/21 11/16/21 11/16/21 10:20 01:26 03:37 WBC 11.8 H 16.0 H RBC 3.42 L 3.58 L Hgb 9.6 L 9.2 L 9.9 L Hct 29.0 L 28.5 L Lymph % (Auto) 9.0 L [place] % (Auto) 10.6 H [place] # (Auto) 1.7 H Seg Neutrophils % 79.9 H Seg Neutrophils # 12.8 H Laboratory Results - last 24 hr 11/15/21 11/15/21 11/15/21 10:20 10:20 10:34 WBC 11.8 H RBC 3.42 L Hgb 9.6 L Hct 29.0 L MCV 85 MCH 28 MCHC 33 RDW 14.5 Plt Count 405 Lymph % (Auto) [place] % (Auto) Eos % (Auto) Baso % (Auto) Lymph # (Auto) [place] # (Auto) Eos # (Auto) Baso # (Auto) Seg Neutrophils % Seg Neutrophils # POC Glucose 72 Hemoglobin A1c SARS-CoV-2 (PCR) Blood Type O POSITIVE Antibody Screen Negative 11/15/21 11/15/21 11/15/21 11:23 14:42 18:20 WBC RBC Hgb Hct MCV MCH MCHC RDW Plt Count Lymph % (Auto) [place] % (Auto) Eos % (Auto) Baso % (Auto) Lymph # (Auto) [place] # (Auto) Eos # (Auto) Baso # (Auto) Seg Neutrophils % Seg Neutrophils # POC Glucose 74 87 Hemoglobin A1c SARS-CoV-2 (PCR) Negative Blood Type Antibody Screen 11/15/21 11/15/21 11/16/21 23:02 Unknown 01:26 WBC RBC Hgb 9.2 L Hct 28.5 L MCV MCH MCHC RDW Plt Count Lymph % (Auto) [place] % (Auto) Eos % (Auto) Baso % (Auto) Lymph # (Auto) [place] # (Auto) Eos # (Auto) Baso # (Auto) Seg Neutrophils % Seg Neutrophils # POC Glucose 76 Hemoglobin A1c 5.5 SARS-CoV-2 (PCR) Blood Type Antibody Screen 11/16/21 11/16/21 03:37 05:14 WBC 16.0 H RBC 3.58 L Hgb 9.9 L Hct 30.5 MCV 85 MCH 28 MCHC 33 RDW 14.4 Plt Count 386 Lymph % (Auto) 9.0 L [place] % (Auto) 10.6 H Eos % (Auto) 0.3 Baso % (Auto) 0.2 Lymph # (Auto) 1.4 [place] # (Auto) 1.7 H Eos # (Auto) 0.0 Baso # (Auto) 0.0 Seg Neutrophils % 79.9 H Seg Neutrophils # 12.8 H POC Glucose 80 Hemoglobin A1c SARS-CoV-2 (PCR) Blood Type Antibody Screen
--- NOTE | 2021-11-16 10:41 | Procedure Note ---
OB Delivery Note - Vaginal Delivery presentation: vertex Delivery position: OA Intrapartum events: mult.variable deceleratio, other(please specify) (gest diabetes, IUGR,IUD in fallopian tube) Delivery induction: misoprostol Delivery augmentation: rupture of membranes, pitocin Delivery monitor: external FHT, external uterine, internal FHT, internal uterine Route of delivery: Delivery placenta: spontaneous Delivery cord: 3 umbilical vessels, other (body cord) Episiotomy: none Delivery laceration: none Anesthesia: epidural Delivery comments: of viable male infant. APGARS 8/9 Delivered over an intact perineum. Nose and mouth suctioned. Body delivered without difficulty. presented in JOVITA. Loose body cord delivered via somersault. 3 vessel cord clamped and cut. Uterus firm with fundal massage and P itocin IV. Placenta delivered spontaneously. Placenta was intact. Perineum, cervix, and vagina inspected, no lacerations noted.Uterine tone adequate after delivery. Post delivery, pt is stable. EBL 50 ml. Delivery tolerated well with epidural. No complications noted. Mom and baby bonding well. DEB Botello CNM - Infant A at 1 minute: 8 at 5 minutes: 9 Gender: Male (FW 2970 Gms)
[2021-11-16] MEDS ORDERED: MAGNESIUM HYDROXIDE (MOM) ORAL LIQD UDC PO PRN (12:00)
[2021-11-16] MEDS ORDERED: LANOLIN/ZINC/DIMETHICONE (LANSINOH) 7 GM TP PRN (12:00)
[2021-11-16] MEDS ORDERED: PROMETHAZINE 25 MG RECT SUPP PR PRN (12:00)
[2021-11-16] MEDS ORDERED: WITCH HAZEL/ GLYCERIN PAD TP PRN (12:00)
[2021-11-16] MEDS ORDERED: diphenhydrAMINE 25 MG CAP PO PRN (12:00)
[2021-11-16] MEDS ORDERED: oxyCODONE /ACETAMINOPHEN 5-325MG TAB PO PRN (12:00)
[2021-11-16] MEDS ORDERED: ONDANSETRON 4 MG/2 ML INJ IV PRN (12:00)
[2021-11-16] MEDS ORDERED: PROMETHAZINE 25 MG TAB PO PRN (12:00)
[2021-11-16] MEDS: IBUPROFEN 600 MG TAB PO SCH ×2 (14:59→20:50)
[2021-11-16] MEDS: AMPICILLIN/SULBACTA 3GM/100ML 3 GM/100 ML BAG IV SCH ×2 (16:09→22:21)
[2021-11-16 23:13] LABS: Hematocrit 30.7 % (30.3-42.9); Hemoglobin 9.9 gm/dl (10.1-14.3)
[2021-11-17] MEDS: IBUPROFEN 600 MG TAB PO SCH ×5 (05:01→23:58)
[2021-11-17] MEDS: AMPICILLIN/SULBACTA 3GM/100ML 3 GM/100 ML BAG IV SCH ×2 (05:01→10:00)
[2021-11-17] MEDS: metFORMIN 500 MG TAB PO SCH ×2 (08:08→17:42)
--- NOTE | 2021-11-17 09:15 | Progress Note ---
Assessment and Plan A: PP Day #1 GDM A2 Asymptomatic Anemia P: Follow Routine Orders Continue Metformin as ordered Continue FeSO4 as ordered Subjective - Subjective Date of service: 11/17/21 Interval history: Early entry to care, course complicated by IUD in left Fallopian tube, SMA carrier, GDM A2, Recurrent UTIs, Anemia, and Vitamin D Deficiency; Co-managed with [facility]. Patient reports: appetite normal, voiding normally, pain well controlled, flatus, ambulating normally : doing well, bottle feeding (and ) Objective - Vital Signs Latest vital signs: Vital Signs Temp Pulse Resp BP BP Pulse Ox Pulse Ox 11/17/21 07:45 97.6 F 79 20 104/54 11/17/21 06:01 18 11/17/21 05:02 18 11/17/21 05:01 18 11/17/21 00:47 98.5 F 88 20 120/71 95 11/16/21 21:50 18 11/16/21 20:50 18 11/16/21 20:16 97.9 F 88 20 113/65 97 11/16/21 19:43 99 11/16/21 16:25 98.2 F 89 18 107/61 99 11/16/21 14:35 98.2 F 80 18 112/57 100 100 11/16/21 13:52 74 90 11/16/21 13:50 91 H 100 11/16/21 13:45 73 100 11/16/21 13:43 75 113/61 11/16/21 13:40 75 99 11/16/21 13:35 83 99 11/16/21 13:30 66 99 11/16/21 13:28 71 105/64 11/16/21 13:25 67 100 11/16/21 13:20 72 100 11/16/21 13:15 78 100 11/16/21 13:13 84 106/63 11/16/21 13:10 72 100 11/16/21 13:05 66 100 11/16/21 13:00 65 100 11/16/21 12:58 75 105/68 11/16/21 12:55 69 100 11/16/21 12:50 64 100 11/16/21 12:45 67 98 11/16/21 12:43 83 105/60 11/16/21 12:40 63 99 11/16/21 12:35 67 99 02/01/22 12:30 67 99 11/16/21 12:28 64 103/62 11/16/21 12:25 68 98 11/16/21 12:20 65 98 11/16/21 12:15 79 99 11/16/21 12:13 65 99/56 11/16/21 12:10 66 99 11/16/21 12:05 64 99 11/16/21 12:00 86 98 11/16/21 11:58 59 L 116/62 11/16/21 11:55 69 98 11/16/21 11:50 66 99 11/16/21 11:45 83 99 11/16/21 11:43 64 110/64 11/16/21 11:40 79 98 11/16/21 11:35 63 99 11/16/21 11:30 60 98 11/16/21 11:29 75 112/62 11/16/21 11:25 73 99 11/16/21 11:20 59 L 98 11/16/21 11:15 59 L 98 11/16/21 11:13 68 104/56 11/16/21 11:10 64 98 11/16/21 11:05 62 99 11/16/21 11:00 61 98 11/16/21 10:58 65 106/55 11/16/21 10:55 65 98 11/16/21 10:50 75 99 11/16/21 10:45 86 99 11/16/21 10:44 80 107/52 11/16/21 10:40 69 99 11/16/21 10:35 76 99 11/16/21 10:30 78 98 11/16/21 10:27 78 121/59 11/16/21 10:25 87 100 11/16/21 10:20 72 98 11/16/21 10:15 81 100 11/16/21 10:10 117 H 100 11/16/21 10:08 96 H 103/61 11/16/21 10:05 118 H 100 11/16/21 10:00 81 100 11/16/21 09:55 78 100 11/16/21 09:50 71 100 11/16/21 09:45 63 100 11/16/21 09:40 65 100 11/16/21 09:35 67 98 11/16/21 09:30 58 L 97 11/16/21 09:25 64 99 11/16/21 09:20 59 L 98 11/16/21 09:15 69 98 Intake and Output 11/16/21 11/17/21 11/17/21 22:59 06:59 14:59 Intake Total 1040 360 360 Output Total 1050 700 Balance -10 -340 360 Intake: IV 200 UNASYN/NS 3 GM/100 ML 3 200 gm In 100 ml @ 200 mls/hr IV Q6H [facility] Rx#:[id number] Oral 360 360 Intake, Free Water 480 360 Output: Urine 1050 700 Void 1050 700 Other: Total, Intake Amount 240 360 Total, Output Amount 450 700 # Voids Void 2 1 # Bowel Movements 1 - Exam Breasts: Present: normal Cardiovascular: Present: Regular rate Lungs: Present: Clear to auscultation, Normal air movement Abdomen: Present: normal appearance, soft, normal bowel sounds Uterus: Present: normal, firm, fundal height below umbilicus Extremities: Present: normal - Labs Labs: Abnormal lab results 11/16/21 Range/Units 22:50 Hgb 9.9 L (10.1-14.3) gm/dl
[2021-11-17] MEDS: FERROUS SULFATE 325 MG TAB PO SCH ×2 (12:02→21:24)
[2021-11-18] MEDS: IBUPROFEN 600 MG TAB PO SCH ×2 (06:27→08:39)
[2021-11-18] MEDS: metFORMIN 500 MG TAB PO SCH (08:37)
[2021-11-18] MEDS: FERROUS SULFATE 325 MG TAB PO SCH (08:37)
--- NOTE | 2021-11-18 10:49 | Progress Note ---
Assessment and Plan PPD#2, , presumed gestational DM with normal accucheck 1. Discharge home and pt to continue accucheck and call the office in 1wk if same elevated 2. For 2hrgtt at 6wks and pt to schedule. All questions encouraged and answered. Subjective Date of service: 11/18/21 Principal diagnosis: PPD#2 Interval history: pt has no complaints and ready to go home. pt states that she took her metformin and she was not taking any meds prior to . Pt is bottle feeding and vag bleed less than a period. Objective - Constitutional Vitals: Vital Signs - 12hr 11/17/21 11/18/21 11/18/21 23:58 00:58 01:30 Temperature Pulse Rate 75 Respiratory 18 18 20 Rate Blood Pressure 105/60 O2 Sat by Pulse 100 Oximetry 11/18/21 11/18/21 06:27 08:03 Temperature 98.1 F Pulse Rate 78 Respiratory 18 18 Rate Blood Pressure 129/69 O2 Sat by Pulse 100 Oximetry General appearance: Present: no acute distress - Respiratory Respiratory effort: normal - Cardiovascular Rhythm: regular Extremities: No edema - Gastrointestinal General gastrointestinal: Present: soft (obese), non-tender - Genitourinary Female genitourinary: other (Fundus firm 1cm below the umbilicus, Lochia scant) - Neurologic Neurologic: moves all extremities - Psychiatric Psychiatric: cooperative - Labs CBC & Chem 7: 11/16/21 22:50 Medications & Allergies - Medications Allergies/Adverse Reactions: Allergies No Known Allergies Allergy (Verified 11/15/21 08:57) Home Medications: Home Medications Medication Instructions Recorded Confirmed Last Taken Type metFORMIN [Glucophage] 1 tab PO QDAY 11/15/21 11/15/21 2 Weeks Ago History ~11/01/21 Active Medications: Generic Name Dose Route Start Last Admin Trade Name Freq PRN Reason Stop Dose Admin Bisacodyl 10 mg 11/16/21 12:00 Bisacodyl 10 Mg Rect Supp IA BID PRN Constipation Diphenhydramine HCl 25 mg 11/16/21 12:00 Diphenhydramine 25 Mg Cap PO Q6H PRN Itching Ephedrine Sulfate 10 mg 11/15/21 20:29 11/15/21 23:35 Ephedrine Sulfate 50 Mg/1 Ml Inj IV 10 mg Q2M PRN Administration Hypotension Ferrous Sulfate 325 mg 11/17/21 10:00 11/18/21 08:37 Ferrous Sulfate 325 Mg Tab PO 325 mg BID RICA Administration Fentanyl/Bupivacaine/Sodium Chlor 200 mcg in 100 mls @ 12 mls/hr 11/15/21 21:00 11/15/21 22:48 Fentanyl-Bupiv 2 Mcg/Ml-0.125% EPIDURAL 12 mls/hr TITR RICA Administration Protocol Sodium Chloride 1,000 mls @ 0 mls/hr 11/15/21 22:45 11/16/21 15:09 Nacl 0.9% 1000 Ml VG 80 mls/hr DIRECT RICA Administration As Directed Sodium Chloride 1,000 mls @ 80 mls/hr 11/15/21 22:45 11/15/21 22:45 Nacl 0.9% 1000 Ml VG 80 mls/hr DIRECT RICA Administration Ibuprofen 600 mg 11/16/21 12:00 11/18/21 08:39 Ibuprofen 600 Mg Tab PO 600 mg Q6H RICA Administration Magnesium Hydroxide 30 ml 11/16/21 12:00 Magnesium Hydroxide (Mom) Oral Liqd Udc PO HS PRN Constipation Metformin HCl 500 mg 11/17/21 08:00 11/18/21 08:37 Metformin 500 Mg Tab PO 500 mg BIDDIAB RICA Administration Multi-Ingredient Ointment 1 applic 11/16/21 12:00 Lanolin/Zinc/Dimethicone (Lansinoh) 7 Gm TP PRN PRN Sore Nipples Nalbuphine HCl 2.5 mg 11/15/21 20:29 Nalbuphine 10 Mg/1 Ml Inj IV Q2H PRN Itching Naloxone HCl 0.2 mg 11/15/21 20:29 Naloxone 2 Mg/2 Ml Inj IV Q5M PRN Respiratory sedation Ondansetron HCl 4 mg 11/16/21 12:00 Ondansetron 4 Mg/2 Ml Inj IV Q8H PRN Nausea And Vomiting Oxycodone/Acetaminophen 1 tab 11/16/21 12:00 11/17/21 08:08 Oxycodone /Acetaminophen 5-325mg Tab PO 1 tab Q6H PRN Administration Pain, Moderate (4-6) Promethazine HCl 25 mg 11/16/21 12:00 Promethazine 25 Mg Rect Supp IA Q6H PRN Nausea And Vomiting Promethazine HCl 25 mg 11/16/21 12:00 Promethazine 25 Mg Tab PO Q6H PRN Nausea And Vomiting Sodium Chloride 10 ml 11/15/21 13:00 Sodium Chloride 0.9% 10 Ml Flush Syringe IV 11/25/21 12:59 PRN NR Witch Prerna/Glycerin 1 each 11/16/21 12:00 Witch Prerna/ Glycerin Pad TP PRN PRN Hemorrhoid/cleansing/soothing
--- NOTE | 2021-11-18 10:51 | Discharge Summary ---
Providers - Providers Date of Admission: 11/15/21 08:41 Date of discharge: 11/18/21 Attending physician: PARIS DEE MD Primary care physician: DATA ARCHITECT MANAGER Hospitalization Reason for admission: IUP at term (Gestational Diabetes on metformin) Episiotomy: none Laceration: none Other procedures: none complications: none Discharge diagnosis: IUP at term delivered (with gestational diabetes) baby: male Hospital course: Term induction of gestational diabetes on metformin. Pt had uncomplicated vag delivery and accucheck normal range 71-103 doing well. Uneventful course. Pt instructed on needed 2hrgtt at 6wks to confirm whether gest DM will persist to type II diabetes. All questions encouraged and answered. Condition at discharge: Good Disposition: 01 HOME / SELF CARE / HOMELESS - Discharge Diagnoses (1) (spontaneous vaginal delivery) Status: Acute (2) Gestational diabetes Status: Acute Plan - Provider Discharge Summary Additional instructions: [] Smoking cessation referral if applicable(refer to patient education folder for contact #) [] Refer to [facility] Booklet Call your doctor immediately for: * Fever > 100.5 * Heavy vaginal bleeding ( >1 pad per hour) * Severe persistent headache * Shortness of breath * Reddened, hot, painful area to leg or breast * Drainage or odor from incision. * Keep incision clean and dry at all times and follow doctor's instructions regarding bathing/showering - Follow up plan Follow up: PRIMARY CARE, [Primary Care Provider] - 7 Days PARIS DEE MD [Staff Physician] - 7 Days
[2021-11-18 11:41] VITALS: BP 115/72
== END 2021-11-18 12:35 | disposition home or self-care (01) | DRG 775 ==
LOC: LD 08:41 → OB 11-16 14:15
PROVIDERS: ADMIT Obstetrics & Gynecology; ATTEND Obstetrics & Gynecology
PROC: 10E0XZZ Delivery of Products of Conception, External Approach (ICD-10-PCS; principal; 2021-11-13)
PROC: 10907ZC Drainage of Amniotic Fluid, Therapeutic from Products of Conception, Via Natural or Artificial Opening (ICD-10-PCS; 2021-11-13)
PROC: 3E0R3BZ Introduction of Anesthetic Agent into Spinal Canal, Percutaneous Approach (ICD-10-PCS; 2021-11-13)
PROC: 00HU33Z Insertion of Infusion Device into Spinal Canal, Percutaneous Approach (ICD-10-PCS; 2021-11-13)
DX: O24.429 Gestational diabetes mellitus in childbirth, unspecified control (principal); Z37.0 Single live birth; Z3A.39 39 weeks gestation of pregnancy; Z20.822 Contact with and (suspected) exposure to COVID-19; O76 Abnormality in fetal heart rate and rhythm complicating labor and delivery; O99.214 Obesity complicating childbirth; O90.81 Anemia of the puerperium
CPT/HCPCS: 36415; 76816; 82962; 83036; 85014; 85018; 85025; 85027; 86850; 86900; 86901; 88307; G0378; J3490; Q0162; J0295; J2590; J7030; J7120; U0003

== ENCOUNTER 2022-02-18 08:19 | Day surgery (SDC) | payer MEDICAID ==
[2022-02-18] MEDS ORDERED: MAGNESIUM OXIDE 400 MG TAB PO NR (08:56)
[2022-02-18] MEDS ORDERED: HYDROmorphone 1 MG/1 ML INJ IV PRN ×2 (08:56→09:30)
--- NOTE | 2022-02-18 08:58 | Anesthesia Consultation ---
Anesthesia Consult and Med Hx Date of service: 02/18/22 - Airway Anesthetic Teeth Evaluation: Good (Missing) ROM Head & Neck: Adequate Mental/Hyoid Distance: Adequate Mallampati Class: Class II Intubation Access Assessment: Good - Pre-Operative Health Status ASA Pre-Surgery Classification: ASA2 Proposed Anesthetic Plan: General - Pulmonary Hx Smoking: Yes (BLACK & MILD CIGARS) Hx Asthma: No COPD: No Hx Pneumonia: No Hx Sleep Apnea: No - Cardiovascular System Hx Hypertension: No Hx Heart Attack/AMI: No Hx Angina: No - Central Nervous System Hx Seizures: No Hx Psychiatric Problems: No - Gastrointestinal Hx Gastroesophageal Reflux Disease: No - Endocrine Hx Renal Disease: No Hx End Stage Renal Disease: No Hx Liver Disease: No Hx Insulin Dependent Diabetes: No Hx Non-Insulin Dependent Diabetes: No (Gestational) Hx Hypothyroidism: No Hx Hyperthyroidism: No - Hematic Hx Anemia: No Hx Sickle Cell Disease: No - Other Systems Hx Alcohol Use: Yes (OCCASIONALLY) Hx Substance Use: No Hx Cancer: No Hx Obesity: Yes
--- NOTE | 2022-02-18 08:58 | Anesthesia Day of Surgery ---
Anesthesia Day of Surgery - Day of Surgery Patient Examined: Yes Patient H&P Reviewed: Yes Patient is NPO: Yes
[2022-02-18] MEDS ORDERED: CELECOXIB 200 MG CAP PO NR (09:00)
[2022-02-18] MEDS ORDERED: MIDAZOLAM 2 MG/2 ML INJ IV NR (09:00)
[2022-02-18] MEDS ORDERED: LACTATED RINGERS 1,000 ML IV SCH (09:00)
[2022-02-18] MEDS ORDERED: ACETAMINOPHEN 500 MG TAB PO NR (09:30)
[2022-02-18] MEDS ORDERED: SUCCINYLCHOLINE CHLORIDE 200 MG/10 ML INJ MDV ONE (09:38)
[2022-02-18] MEDS ORDERED: dexAMETHasone 20 MG/5 ML VIAL ONE (09:38)
[2022-02-18] MEDS ORDERED: propofoL 200 MG/20 ML VIAL IV ONE (09:38)
[2022-02-18] MEDS ORDERED: fentaNYL 100 MCG/2 ML INJ ONE ×2 (09:38→11:27)
[2022-02-18] MEDS ORDERED: ONDANSETRON 4 MG/2 ML INJ ONE (09:38)
[2022-02-18] MEDS ORDERED: LIDOCAINE PF 100 MG/5 ML (CARDIAC SYRINGE) IV ONE (09:38)
[2022-02-18] MEDS ORDERED: ONDANSETRON 4 MG/2 ML INJ IV PRN (10:00)
--- NOTE | 2022-02-18 10:43 | Operative Report ---
Operative Report Operative Report: Preoperative diagnosis: Intraperitoneal retained IUD Postoperative diagnosis: Same Procedure: Diagnostic laparoscopy with diagnostic cystoscopy Surgeon: Dr. Keke Lester Anesthesia: GETA Complication: None EBL minimal less than 20 mL IV fluids 1 L crystalloid Urine output adequate and clear approximately 100 mL Drain none Findings: No abdominal pathology normal uterus tubes and ovaries, intra peritoneal IUD with head in the bladder and tail in the abdominal wall Procedure: Patient was consented in preop holding about risks benefits possible complications as well as alternatives to the procedure. After informed consent was obtained patient was taken to the operating room. She received excellent general endotracheal anesthesia and with no complication. She was then placed in the dorsal lithotomy position, prepped and draped in a sterile fashion. A timeout was verified, a Hernandez catheter was placed atraumatically. A speculum was placed in the vaginal vault, the parametria was noted to be pink with no masses lesions or nodularity. The cervix was identified, grasped with a single-tooth tenaculum, and an acorn uterine manipulator was placed atraumatically. Attention then turned to the abdomen. An umbilical incision was made with a scalpel, taken down to the fascia which was incised sharply atraumatically. The Hernandez trocar was then introduced into the abdomen atraumatically. Correct placement of the trocar was confirmed under direct visualization. The patient was placed in steep Trendelenburg. A second incision was made in the left lower quadrant, a 5 mm trocar was introduced atraumatically into the abdomen. An atraumatic grasper was placed in the 5 mm trocar port to allow for retraction and visualization. The tail of the IUD with the string was noted to be perforating through the posterior wall of the bladder encased in the peritoneum; it is not freely mobile. Attention was then turned to cystoscopy which was performed under sterile conditions in the usual fashion. After hydrodistention of the bladder the arms of the IUD were easily seen in the left upper quadrant of the bladder, again this is not freely mobile. At this time it was thought that it was better to stop the procedure without causing incidental cystotomy to allow for the appropriate urology management of this complication. The cystoscope was removed from the bladder atraumatically. Both abdominal trochars were removed atraumatically under direct visualization. The fascia was closed with 0 Vicryl, the skin closed with Monocryl. Pressure dressings were applied at both incision sites. The uterine manipulator and speculum were removed from the uterus and the cervix respectively. The Hernandez catheter was removed. The patient was extubated and taken to the recovery area in stable condition. Her family was notified of her stable condition immediately following the completion of the procedure. There were no complications. EBL less than 20 mL. All sponge needle and instrument counts were correct x2Franki Lester MD
[2022-02-18] MEDS ORDERED: SODIUM CHLORIDE 0.9% IRR 1,500 ML BOTTLE IR ONE (10:52)
[2022-02-18] MEDS ORDERED: ROCURONIUM 50 MG/5 ML INJ IV ONE (11:35)
[2022-02-18] MEDS ORDERED: GLYCOPYRROLATE 0.4 MG/2 ML INJ ONE (11:36)
[2022-02-18] MEDS ORDERED: NEOSTIGMINE 10MG/10 ML INJ MDV ONE (11:36)
[2022-02-18] MEDS ORDERED: ceFAZolin 1 GM VIAL ONE (11:37)
[2022-02-18] MEDS ORDERED: SUGAMMADEX SODIUM 200 MG/2 ML VIAL IV ONE (11:52)
[2022-02-18 14:45] VITALS: BP 145/66
--- NOTE | 2022-02-18 17:23 | Post Anesthesia Evaluation ---
- Post Anesthesia Evaluation Patient Participated: Yes Airway Patent: Yes Stable Respiratory Function: Yes Nausea/Vomiting: No Temp > 96.8F: Yes Pain Manageable: Yes Adequeate Hydration: Yes Anesthesia Complications: No Block Receding Appropriately: Not Applicable Patient on Ventilator: No
== END 2022-02-18 13:45 | disposition home or self-care (01) ==
LOC: OR 08:19
PROVIDERS: ATTEND Obstetrics & Gynecology
DX: T83.39XA Other mechanical complication of intrauterine contraceptive device, initial encounter (principal); F17.210 Nicotine dependence, cigarettes, uncomplicated; E66.9 Obesity, unspecified; E11.9 Type 2 diabetes mellitus without complications; Z79.899 Other long term (current) drug therapy; Z72.89 Other problems related to lifestyle; Z83.3 Family history of diabetes mellitus; Z68.37 Body mass index [BMI] 37.0-37.9, adult
CPT/HCPCS: 49320; 52000; 81025; J0330; J0690; J1100; J1170; J1815; J2001; J2250; J2405; J2704; J2710; J3010; J3490; J7120